=== PATIENT | female | born 1955 | race African-American/Black ===

== ENCOUNTER 2022-01-18 16:09 | Emergency (ER) | payer MEDICARE, MEDICAID ==
[~2022-01-18] VITALS: Ht 162.6 cm; Wt 77.0 kg
[~2022-01-18 16:09] MED LIST: ATOR10TA PO; LAMO25TA3 PO; PHEN100C4; PHEN100C4 PO
[2022-01-18] MEDS ORDERED: ACETAMINOPHEN 325MG TABLET PO ONE (16:45)
[2022-01-18] MEDS ORDERED: METHOCARBAMOL 750MG TABLET PO SCH (16:45)
[2022-01-18] MEDS ORDERED: LIDOCAINE 5% PATCH TOP SCH (16:45)
[2022-01-18] MEDS ORDERED: IBUP-2028 MT (18:40)
[2022-01-18] MEDS ORDERED: TOPUD PO (18:41)
[2022-01-18] MEDS ORDERED: LIDO1ADH23 TP (18:42)
[2022-01-18] MEDS ORDERED: METH-653 MT (18:42)
[2022-01-18] MEDS ORDERED: KETOROLAC 60MG/2ML VIAL IM ONE (18:45)
[2022-01-18 19:04] VITALS: BP 135/73
== END 2022-01-18 19:05 | disposition home or self-care (01) ==
LOC: ER 16:09
DX: S13.4XXA Sprain of ligaments of cervical spine, initial encounter (principal); R51.9 Headache, unspecified; I10 Essential (primary) hypertension; G40.909 Epilepsy, unspecified, not intractable, without status epilepticus; Z88.5 Allergy status to narcotic agent; V43.52XA Car driver injured in collision with other type car in traffic accident, initial encounter; Y93.89 Activity, other specified; Y92.488 Other paved roadways as the place of occurrence of the external cause
CPT/HCPCS: 99284